=== PATIENT | female | born 1960 | race Hispanic/Latino ===

== ENCOUNTER → 2024-01-23 07:51 | Outpatient (REF) | payer BC, SELFPAY ==
[2024-01-23 08:42] LABS: % Eosinophils 2.6 % (0-6); % Immature Granulocytes 0.3 % (0-0.5); % Lymphocytes 49.4 % (20.5-51.1); % Monocytes 10.5 % (1.7-9.3); % Neutrophils 36.2 % (42.2-75.2); Absolute Basophils 0.1 10^3/uL (0-0.2); Absolute Eosinophils 0.2 10^3/uL (0-0.7); Absolute Lymphocytes 3.1 10^3/uL (1.2-3.4); Absolute Monocytes 0.7 10^3/uL (0.1-0.6); Absolute Neutrophils 2.3 10^3/uL (1.4-6.5); Hematocrit 35.6 % (37.0-47.0); Hemoglobin 11.5 g/dL (12.0-16.0); Mean Corp Hgb Conc. 32.3 g/dL (33.0-37.0); Mean Corpuscular Hgb 27.4 pg (27.0-31.0); Mean Corpuscular Volume 84.8 fL (81.0-99.0); Mean Platelet Volume 9.1 fL (7.4-10.4); Nucleated Red Blood Cells % 0 %; Platelet Count 271 10^3/uL (130-400); White Blood Cell Count 6.2 10^3/uL (4.8-10.8)
[2024-01-23 09:12] LABS: ALT (SGPT) 19 U/L (0-35); AST (SGOT) 22 U/L (14-36); Albumin 3.6 g/dl (3.5-5.0); Alkaline Phosphatase 80 U/L (38-126); Blood Urea Nitrogen 10 mg/dl (7-17); Calcium 9.9 mg/dl (8.4-10.2); Carbon Dioxide 28 mmol/L (22-30); Chloride 106 mmol/L (98-107); Glucose 94 mg/dl (70-99); HDL Cholesterol 64 mg/dl; LDL Cholesterol, Calculated 26 mg/dl; Potassium 4.5 mmol/L (3.5-5.1); Sodium 139 mmol/L (135-145); Total Bilirubin 0.7 mg/dl (0.2-1.3); Total Cholesterol 125 mg/dl (50-199); Total Protein 6.6 g/dl (6.3-8.2); Triglyceride 177 mg/dl (10-149); Very Low Density Lipoprotein 35 mg/dl (0-30); eGFR > 60.00
== END ==
LOC: REG 07:51
PROVIDERS: ATTENDING PHYSICIAN Student in an Organized Health Care Education/Training Program
DX: E78.00 Pure hypercholesterolemia, unspecified (principal); Z86.2 Personal history of diseases of the blood and blood-forming organs and certain disorders involving the immune mechanism; I10 Essential (primary) hypertension
CPT/HCPCS: 36415; 80053; 80061; 85025

== ENCOUNTER 2024-02-10 08:17 | Outpatient (RCR) | payer BC, SELFPAY | END 2024-02-10 23:59 | disposition home or self-care (01) | LOC: ROT 08:17 | PROVIDERS: ATTENDING PHYSICIAN Orthopaedic Surgery Hand Surgery; FAMILY PHYSICIAN Student in an Organized Health Care Education/Training Program | DX: M79.645 Pain in left finger(s) (principal); Z47.89 Encounter for other orthopedic aftercare; Z73.6 Limitation of activities due to disability | CPT/HCPCS: 97166; 97535 ==

== ENCOUNTER 2024-02-25 09:08 | Outpatient (RCR) | payer BC, SELFPAY | END 2024-02-25 23:59 | disposition home or self-care (01) | LOC: ROT 09:08 | PROVIDERS: ATTENDING PHYSICIAN Orthopaedic Surgery Hand Surgery; FAMILY PHYSICIAN Student in an Organized Health Care Education/Training Program | DX: M79.645 Pain in left finger(s) (principal); Z47.89 Encounter for other orthopedic aftercare; Z73.6 Limitation of activities due to disability | CPT/HCPCS: 97018; 97110; 97140 ==

== ENCOUNTER 2024-04-09 14:30 | Emergency (ER) | payer BC, SELFPAY ==
[2024-04-09] VITALS (11 sets, daily range): BP systolic 105–136; BP diastolic 66–90; BMI 27.5
[2024-04-09] MEDS: OFIRMEV 100 IV (16:44)
[2024-04-09] MEDS: ZOFRAN 4 MG IV (16:44)
[2024-04-09] MEDS: NSS 1000 IV (16:44)
[2024-04-09 16:57] LABS: % Basophils 0.4 % (0-2); % Eosinophils 0.1 % (0-6); % Immature Granulocytes 0.5 % (0-0.5); % Lymphocytes 25.2 % (20.5-51.1); % Neutrophils 65.8 % (42.2-75.2); Absolute Immature Granulocytes 0.1 10^3/uL (0-0.05); Absolute Lymphocytes 2.6 10^3/uL (1.2-3.4); Absolute Monocytes 0.8 10^3/uL (0.1-0.6); Absolute Neutrophils 6.9 10^3/uL (1.4-6.5); Hematocrit 32.4 % (37.0-47.0); Hemoglobin 10.7 g/dL (12.0-16.0); Mean Corpuscular Hgb 27.4 pg (27.0-31.0); Mean Corpuscular Volume 83.1 fL (81.0-99.0); Mean Platelet Volume 9.4 fL (7.4-10.4); Nucleated Red Blood Cells % 0 %; Platelet Count 305 10^3/uL (130-400); Red Cell Dist. Width 15.9 % (11.5-14.5); White Blood Cell Count 10.4 10^3/uL (4.8-10.8)
[2024-04-09 17:06] LABS: ALT (SGPT) 20 U/L (0-35); AST (SGOT) 19 U/L (14-36); Albumin 3.9 g/dl (3.5-5.0); Alkaline Phosphatase 75 U/L (38-126); Blood Urea Nitrogen 17 mg/dl (7-17); Calcium 9.7 mg/dl (8.4-10.2); Carbon Dioxide 27 mmol/L (22-30); Chloride 103 mmol/L (98-107); Estimated Creatinine Clearance 101 ml/min; Glucose 100 mg/dl (70-99); Lipase 119 U/L (23-300); Potassium 4.4 mmol/L (3.5-5.1); Sodium 135 mmol/L (135-145); Total Bilirubin 0.6 mg/dl (0.2-1.3); Total Protein 6.6 g/dl (6.3-8.2); eGFR > 60.00
[2024-04-09] MEDS: COMPAZINE 10 MG IV (18:33)
[2024-04-09 19:13] LABS: Urine Albumin Negative (Neg - Trace); Urine Bilirubin Negative (Negative); Urine Character Clear (Clear); Urine Color Straw; Urine Glucose Negative (Negative); Urine Ketone Negative (Negative); Urine Leukocyte Negative (Negative); Urine Nitrite Negative (Negative); Urine Occult Blood Negative (Negative); Urine Urobilinogen Negative (Neg - 1+); Urine pH 6.5 (5.0-9.0)
[2024-04-09 20:53] LABS: COVID-19 Antigen Negative (Negative)
--- NOTE | 2024-04-09 23:10 | ED.GENMED ---
History of Present Illness
General
Chief Complaint: Abdominal Symptoms
Source: patient
Exam Limitations: none
Time Seen by Provider: 04/09/24 16:23
Nursing documentation reviewed up to this point in time: agreed with
Travel History
Have you had any contact with someone who has COVID-19?: No
Do you have any symptoms of coronavirus? Fever > 100 degrees, chills, cough, shortness of breath, sore throat, loss of taste or smell, muscle aches, or headache?: No
History of Present Illness
History of Present Illness:
Patient to ED with complaint of n/v/headache x 2 days. Denies fever/chills. Unable to keep anything down. Brought to ED by spouse for eval.
Past History
Past History
ED Past Medical History: CAD, GERD, HTN (Hypertension) and Psychiatric (Anxiety)
ED Past Surgical History: Cardiac (Cardiac stent 04/2021 Dr. Mosley. Last visit 3 weeks ago for check up.)
Social History
Tobacco: Non-smoker
Alcohol: None
Personal:
Living: with family
Employment: Retired
Family History
Family History: Diabetes
Review of Systems
Review of Systems
Allergies reviewed?: Yes
All Other Systems: ROS reviewed and negative except as documented in HPI and ROS
Constitutional: Reports no symptoms
EENT: Reports no symptoms
Respiratory: Reports no symptoms
Cardiac: Reports no symptoms
ABD/GI: Reports nausea and vomiting
: Reports no symptoms
Musculoskeletal: Reports no symptoms
Skin: Reports no symptoms
Neurological: Reports headache
Psychiatric: Reports no symptoms
Phy Exam
General Physical Exam
General Presentation: well appearing and moderate distress
General Skin: warm and dry
General Habitus: normal
General Mental: alert
Cardiovascular Exam
Cardiovascular Exam: regular rate/rhythm and no edema
Pulmonary Exam
Pulmonary Exam: lungs clear and no respiratory distress
Gastrointestinal Exam
Gastrointestinal Exam: normal bowel sounds, non tender, soft, no organomegaly, no pulsatile mass, non distended and no cva tenderness
Neurological Exam
Neurological Exam: alert, oriented x3, CN II-XII intact, no motor deficits, no sensory deficits and speech normal
Musculoskeletal Exam
Musculoskeletal Exam: full ROM and neuro vasc intact
Skin Exam
Skin Exam: normal color, warm/dry and no rash
Psychiatric Exam
Psychiatric Exam: normal mood/affect
Course
Orders/Labs/Results
Orders:
Orders
04/09/24 16:32
CT Head W/o Iv Contrast Urgent
Comment:
Reason For Exam: severe headache, vomiting
0.9% Sodium Chloride 1000 ml [Nss] 1,000 ml IV BOLUS
Acetaminophen 1000MG/100Ml [Ofirmev] 1,000 mg in 100 ml IV ONCE
Acetaminophen IV Indication:: No OR & No Enteral Access
Ondansetron Injectable [Zofran] 4 mg IV NOW STA
04/09/24 16:40
Complete Blood Count/With Diff Urgent
Comprehensive Metabolic Panel Urgent
Lipase Urgent
Urinalysis Reflex To Culture Urgent
Date Specimen was Collected: 04/09/24
Time Specimen was Collected: 16:34
04/09/24 18:10
Prochlorperazine [Compazine] 10 mg IV NOW STA
04/09/24 20:19
COVID-19 Antigen Urgent
Source: Nasal Swab
Abnormal Lab Results
04/09/24
16:40
RBC 3.90 L 10^6/uL
(4.20-5.40)
Hgb 10.7 L g/dL
(12.0-16.0)
Hct 32.4 L %
(37.0-47.0)
RDW 15.9 H %
(11.5-14.5)
Abs Immat Gran (auto) 0.1 H 10^3/uL
(0-0.05)
Absolute Neuts (auto) 6.9 H 10^3/uL
(1.4-6.5)
Absolute Monos (auto) 0.8 H 10^3/uL
(0.1-0.6)
Glucose 100 H mg/dl
(70-99)
04/09/24 16:40
04/09/24 16:40
Vital Signs
Initial and Last Documented VS:
Initial Vital Signs
Temp Pulse Resp BP Pulse Ox
97.8 F 63 16 131/90 98
04/09/24 14:32 04/09/24 14:32 04/09/24 14:32 04/09/24 14:32 04/09/24 14:32
Last Documented Vital Signs
Temp Pulse Resp BP Pulse Ox
97.9 F 65 16 109/78 90
04/09/24 17:43 04/09/24 20:44 04/09/24 20:44 04/09/24 20:44 04/09/24 20:37
*Radiology
Radiology exam reviewed: radiology read reviewed
*Pulse Oximetry
Patient hypoxic: no
*Critical Care Note
Total Time (30-74mins, 75-104mins- exclusive of procedures): Not Applicable
Update Note
Update Note:
Improved with IVF, tylenol. Will discharge home, close follow up with PCP. RX for compazine sent to pharmacy. Given instructions on s/s to return to ED and she is agreeable to plan.
ED Attending Note
-
Portions of this chart may have been created with voice recognition software.� Occasional wrong word or��sound alike� substitutions may have occurred due to the inherent limitations of voice recognition software.
Discharge Plan
Departure
Patient Disposition: Home (Routine Discharge)
Date of Disposition: 04/09/24
Time of Disposition: 20:19
Patient with high blood pressure during this ER visit?: No
Condition: Good
Covid-19: Not Applicable
Discharge Problem:
Vomiting
Instructions: Clear Liquid Diet, Nausea and Vomiting, Adult (DC)
Prescriptions:
New
prochlorperazine maleate [Compazine] 10 mg tablet
10 mg PO TID PRN (Reason: nausea and vomiting) Qty: 12 0RF
No Action
citalopram 40 MG tablet
40 mg PO DAILY
aspirin [Lo-Dose Aspirin] 81 MG tablet,delayed release (DR/EC)
81 mg PO DAILY
Propranolol Hcl [Inderal La] 60 MG Cap.Sa.24h
60 mg PO DAILY
atorvastatin 40 MG tablet
40 mg PO DAILY Qty: 90 3RF
clopidogrel 75 MG tablet
75 mg PO DAILY Qty: 90 3RF
nitroglycerin 0.4 MG tablet, sublingual
0.4 mg sublingual [id number] PRN (Reason: chest pain) Qty: 25 2RF
Referrals:
Rosaura Burgos MD [Family Provider] - Follow up in 2-3 days
Interventions
Interventions:
*Risk Screen - Suicide Last Done: 04/09/24 16:49
*General Assessment Last Done: 04/09/24 16:49
*Neglect/Abuse Screening Last Done: 04/09/24 16:49
ED- Fall Risk Assessment Last Done: 04/09/24 16:49
*ED COVID-19 Vaccine History Last Done: 04/09/24 16:49
*Nursing Disposition Last Done: 04/09/24 20:44
DP-Gxemmt-Otgezanlmx Assessment Last Done: 04/09/24 16:49
Discharge Date and Time
Discharge Date/Time: 04/09/24 20:45
Print Language: SYRI[place]
== END 2024-04-09 20:45 | disposition home or self-care (01) ==
LOC: EMR 14:30
PROVIDERS: Nurse Practitioner; EMERGENCY PHYSICIAN Emergency Medicine; FAMILY PHYSICIAN Student in an Organized Health Care Education/Training Program
DX: R11.2 Nausea with vomiting, unspecified (principal); R51.9 Headache, unspecified
CPT/HCPCS: 99283; 96374; 96375; 96361; 70450; 80053; 81003; 83690; 85025; 87811

== ENCOUNTER → 2024-04-13 14:03 | Outpatient (REF) | payer BC, SELFPAY ==
[2024-04-13 15:17] LABS: % Basophils 0.5 % (0-2); % Eosinophils 1.8 % (0-6); % Immature Granulocytes 0.4 % (0-0.5); % Lymphocytes 40.8 % (20.5-51.1); % Monocytes 10.1 % (1.7-9.3); % Neutrophils 46.4 % (42.2-75.2); Absolute Eosinophils 0.2 10^3/uL (0-0.7); Absolute Lymphocytes 3.4 10^3/uL (1.2-3.4); Absolute Monocytes 0.8 10^3/uL (0.1-0.6); Absolute Neutrophils 3.8 10^3/uL (1.4-6.5); Hematocrit 36.2 % (37.0-47.0); Hemoglobin 11.4 g/dL (12.0-16.0); Mean Corp Hgb Conc. 31.5 g/dL (33.0-37.0); Mean Corpuscular Hgb 27.3 pg (27.0-31.0); Mean Corpuscular Volume 86.8 fL (81.0-99.0); Mean Platelet Volume 9.4 fL (7.4-10.4); Nucleated Red Blood Cells % 0 %; Platelet Count 316 10^3/uL (130-400); Red Blood Cell Count 4.17 10^6/uL (4.20-5.40); Red Cell Dist. Width 15.9 % (11.5-14.5); White Blood Cell Count 8.2 10^3/uL (4.8-10.8)
[2024-04-13 15:38] LABS: Iron 71 ug/dl (37-170)
[2024-04-13 15:49] LABS: Percent Saturation 15 % (20-50); Total Iron Binding Capacity 450 ug/dl (265-497)
[2024-04-13 16:13] LABS: Ferritin 5.2 ng/ml (11.1-264.0)
[2024-04-13 16:27] LABS: Vitamin B12 253 pg/ml (239-931)
== END ==
LOC: REG 14:03
PROVIDERS: ATTENDING PHYSICIAN Student in an Organized Health Care Education/Training Program
DX: D64.9 Anemia, unspecified (principal); Z00.00 Encounter for general adult medical examination without abnormal findings
CPT/HCPCS: 36415; 82607; 82728; 83540; 83550; 85025; 86787

== ENCOUNTER → 2024-07-22 07:57 | Outpatient (REF) | payer BC, SELFPAY ==
[2024-07-22 08:42] LABS: % Basophils 0.7 % (0-2); % Eosinophils 1.7 % (0-6); % Immature Granulocytes 0.4 % (0-0.5); % Lymphocytes 40.9 % (20.5-51.1); % Monocytes 10.9 % (1.7-9.3); % Neutrophils 45.4 % (42.2-75.2); Absolute Eosinophils 0.1 10^3/uL (0-0.7); Absolute Lymphocytes 2.2 10^3/uL (1.2-3.4); Absolute Monocytes 0.6 10^3/uL (0.1-0.6); Absolute Neutrophils 2.5 10^3/uL (1.4-6.5); Hematocrit 39.1 % (37.0-47.0); Hemoglobin 13.3 g/dL (12.0-16.0); Mean Corpuscular Hgb 29.6 pg (27.0-31.0); Mean Corpuscular Volume 87.1 fL (81.0-99.0); Mean Platelet Volume 9.8 fL (7.4-10.4); Nucleated Red Blood Cells % 0 %; Platelet Count 237 10^3/uL (130-400); Red Blood Cell Count 4.49 10^6/uL (4.20-5.40); Red Cell Dist. Width 16.3 % (11.5-14.5); White Blood Cell Count 5.4 10^3/uL (4.8-10.8)
[2024-07-22 10:18] LABS: IgA 141 mg/dl (70-400)
[2024-07-23 23:17] LABS: H. pylori Breath Test Negative (Negative)
[2024-07-24 01:14] LABS: Endomysial IgA Antibody Titer <1:10 (<1:10)
== END ==
LOC: REG 07:57
PROVIDERS: ATTENDING PHYSICIAN Internal Medicine Gastroenterology; FAMILY PHYSICIAN Student in an Organized Health Care Education/Training Program
DX: D50.8 Other iron deficiency anemias (principal)
CPT/HCPCS: 36415; 82784; 83013; 83516; 85025; 86231

== ENCOUNTER → 2024-07-27 09:30 | Outpatient (REF) | payer BC, SELFPAY ==
[2024-07-28 14:23] LABS: H. pylori Antigen, Fecal Negative (Negative)
== END ==
LOC: REG 09:30
PROVIDERS: ATTENDING PHYSICIAN Internal Medicine Gastroenterology; FAMILY PHYSICIAN Student in an Organized Health Care Education/Training Program
DX: D50.8 Other iron deficiency anemias (principal)
CPT/HCPCS: 82270; 87338

== ENCOUNTER → 2024-08-17 13:09 | Outpatient (REF) | payer BC, SELFPAY | LOC: WDC 13:09 | PROVIDERS: ATTENDING PHYSICIAN Student in an Organized Health Care Education/Training Program | DX: Z12.31 Encounter for screening mammogram for malignant neoplasm of breast (principal) | CPT/HCPCS: 77063; 77067 ==

== ENCOUNTER → 2024-08-23 06:29 | Day surgery (SDC) | payer BC, SELFPAY | LOC: GI 06:29 | PROVIDERS: ATTENDING PHYSICIAN Internal Medicine Gastroenterology | DX: D50.9 Iron deficiency anemia, unspecified (principal); D12.3 Benign neoplasm of transverse colon; K22.89 Other specified disease of esophagus; K44.9 Diaphragmatic hernia without obstruction or gangrene; K31.89 Other diseases of stomach and duodenum; K20.90 Esophagitis, unspecified without bleeding | CPT/HCPCS: 45385; 45381; 43239; 88305; 88342 ==

== ENCOUNTER 2024-10-27 10:45 | Emergency (ER) | payer BC, SELFPAY ==
[2024-10-27 11:05] VITALS: BP 141/108
--- NOTE | 2024-10-27 11:07 | ED.GENMED ---
ED Provider Triage
<Chi Nazario PA-C - Last Filed: 10/27/24 11:07>
-
Patient seen by provider in Triage?: Seen in Triage
64-year-old female not anticoagulated tripped over uneven sidewalk and fell forward hitting her forehead on a dumpster. She notes headache and slight neck discomfort. She does not think she lost consciousness. No vision disturbance. No other
complaints
Vital signs stable through triage. CT head and cervical spine ordered
Medical screening examination was provided at triage by healthcare provider. She warrants further evaluation
History of Present Illness
<Chi Nazario PA-C - Last Filed: 10/27/24 11:07>
General
Chief Complaint: Head Injury
Time Seen by Provider: 10/27/24 12:18
<Aquilino Reyna PA-C - Last Filed: 10/27/24 14:38>
General
Source: patient
History of Present Illness
History of Present Illness:
64-year-old female with past medical history of hypertension and coronary artery disease presenting to the emergency department for evaluation after she accidentally stumbled and fell face first into the side of a dumpster injuring the right side of
her head. Patient noticed immediate contusion to the right frontal scalp and is endorsing headache and mild nausea. No reported loss consciousness, vomiting, vision changes or any other extremity related injuries.
Past History
<Chi Nazario PA-C - Last Filed: 10/27/24 11:07>
Past History
ED Past Medical History: CAD, GERD, HTN (Hypertension) and Psychiatric (Anxiety)
ED Past Surgical History: Cardiac (Cardiac stent 04/2021 Dr. Mosley. Last visit 3 weeks ago for check up.)
Social History
Tobacco: Non-smoker
Alcohol: None
Personal:
Living: with family
Employment: Retired
Family History
Family History: Diabetes
<Aquilino Reyna PA-C - Last Filed: 10/27/24 14:38>
Social History
Drug: None
Review of Systems
<Aquilino Reyna PA-C - Last Filed: 10/27/24 14:38>
Review of Systems
All Other Systems: ROS reviewed and negative except as documented in HPI and ROS
Phy Exam
<Aquilino Reyna PA-C - Last Filed: 10/27/24 14:38>
Physical Exam
Physical Exam:
GENERAL: Alert , in no apparent distress
EYE: conjunctiva clear
Head: Moderate-sized contusion over the right frontal scalp. There is also superficial abrasions surrounding this and ecchymosis to the right upper eyelid.
NECK: Supple,
ENT: mmm. Small abrasion right lateral lower lip
LUNGS: no acute respiratory distress
NEUROLOGICAL: Alert and oriented
SKIN: Warm and dry, skin intact.
MUSCULOSKELETAL: well perfused.
PSYCH: Normal and appropriate interaction.
Scores
<Aquilino Reyna PA-C - Last Filed: 10/27/24 14:38>
Heart Failure Risk
Heart Failure Risk Score: Not Applicable
Heart Score for Chest Pain Patients
STEMI patient?: Not applicable
Withdrawal Assessment of Alcohol
Withdrawal Assessment Completed?: Not applicable
Course
<Chi Nazario PA-C - Last Filed: 10/27/24 11:07>
Orders/Labs/Results
Orders:
Orders
10/27/24 11:04
CT Cervical Spine W/o Iv Contr Urgent
Comment:
Reason For Exam: fall, head strike
10/27/24 11:05
CT Head W/o Iv Contrast Urgent
Comment:
Reason For Exam: fall
10/27/24 12:26
Acetaminophen [Tylenol] 1,000 mg PO NOW STA
Tetanus/Diphth/Acelpertussis [Adacel] 0.5 ml IM .ONCE ONE
Vital Signs
Initial and Last Documented VS:
Initial Vital Signs
Temp Pulse Resp BP Pulse Ox
98.1 F 65 18 141/108 94
10/27/24 11:05 10/27/24 11:05 10/27/24 11:05 10/27/24 11:05 10/27/24 11:05
Last Documented Vital Signs
Temp Pulse Resp BP Pulse Ox
98.1 F 67 18 141/108 97
10/27/24 11:05 10/27/24 13:07 10/27/24 11:05 10/27/24 11:05 10/27/24 13:07
<Aquilino Reyna PA-C - Last Filed: 10/27/24 14:38>
Orders/Labs/Results
Orders:
Orders
10/27/24 11:04
CT Cervical Spine W/o Iv Contr Urgent
Comment:
Reason For Exam: fall, head strike
10/27/24 11:05
CT Head W/o Iv Contrast Urgent
Comment:
Reason For Exam: fall
10/27/24 12:26
Acetaminophen [Tylenol] 1,000 mg PO NOW STA
Tetanus/Diphth/Acelpertussis [Adacel] 0.5 ml IM .ONCE ONE
Vital Signs
Initial and Last Documented VS:
Initial Vital Signs
Temp Pulse Resp BP Pulse Ox
98.1 F 65 18 141/108 94
10/27/24 11:05 10/27/24 11:05 10/27/24 11:05 10/27/24 11:05 10/27/24 11:05
Last Documented Vital Signs
Temp Pulse Resp BP Pulse Ox
98.1 F 67 18 141/108 97
10/27/24 11:05 10/27/24 13:07 10/27/24 11:05 10/27/24 11:05 10/27/24 13:07
<Aquilino Reyna PA-C - Last Filed: 10/27/24 14:38>
MDM/Problems Addressed
Differential Diagnosis Includes:
Contusion, concussion, intracranial bleeding
MDM/Problems Addressed:
64-year-old female presenting the ER following accidental fall resulting in head injury/contusion. No loss consciousness. Exam did reveal a moderate-sized contusion to the right frontal scalp. Head CT and cervical spine CT unremarkable any
emergent pathologies. Will update patient's tetanus. Tylenol ordered for pain control. Provided with ice pack and advised to keep head elevated to help with swelling. Otherwise stable for discharge home.
<Aquilino Reyna PA-C - Last Filed: 10/27/24 14:38>
*Radiology
Radiology exam reviewed: radiology read reviewed
*Pulse Oximetry
Patient hypoxic: no
*Critical Care Note
Total Time (30-74mins, 75-104mins- exclusive of procedures): Not Applicable
ED Attending Note
<Chi Nazario PA-C - Last Filed: 10/27/24 11:07>
-
Portions of this chart may have been created with voice recognition software.� Occasional wrong word or��sound alike� substitutions may have occurred due to the inherent limitations of voice recognition software.
Discharge Plan
Departure
Patient Disposition: Home (Routine Discharge)
Date of Disposition: 10/27/24
Time of Disposition: 12:25
Patient with high blood pressure during this ER visit?: Yes
Discharge Problem:
Contusion of forehead
Instructions: Concussion, Adult (DC)
Prescriptions:
No Action
citalopram 40 MG tablet
40 mg PO DAILY
aspirin [Lo-Dose Aspirin] 81 MG tablet,delayed release (DR/EC)
81 mg PO DAILY
Propranolol Hcl [Inderal La] 60 MG Cap.Sa.24h
60 mg PO DAILY
atorvastatin 40 MG tablet
40 mg PO DAILY Qty: 90 3RF
clopidogrel 75 MG tablet
75 mg PO DAILY Qty: 90 3RF
nitroglycerin 0.4 MG tablet, sublingual
0.4 mg sublingual [id number] PRN (Reason: chest pain) Qty: 25 2RF
prochlorperazine maleate [Compazine] 10 mg tablet
10 mg PO TID PRN (Reason: nausea and vomiting) Qty: 12 0RF
Referrals:
Rosaura Burgos MD [Family Provider] -
Interventions
Interventions:
*Risk Screen - Suicide Last Done: 10/27/24 11:05
*General Assessment Last Done: 10/27/24 11:05
*Neglect/Abuse Screening Last Done: 10/27/24 11:05
*ED COVID-19 Vaccine History Last Done: 10/27/24 13:06
*Nursing Disposition Last Done: 10/27/24 13:07
ED-Musculoskeletal Assessment Last Done: 10/27/24 13:07
ED- Neurological Assessment Last Done: 10/27/24 12:21
ED-Skin Assessment Last Done: 10/27/24 12:22
Discharge Date and Time
Discharge Date/Time: 10/27/24 13:08
Print Language: GRENADIAN
[2024-10-27 12:20] VITALS: BMI 29.5
[2024-10-27] MEDS: TYLENOL 1000 MG PO (12:36)
[2024-10-27] MEDS: ADACEL 0.5 ML IM (12:37)
== END 2024-10-27 13:08 | disposition home or self-care (01) ==
LOC: EMR 10:45
PROVIDERS: EMERGENCY PHYSICIAN Student in an Organized Health Care Education/Training Program; FAMILY PHYSICIAN Student in an Organized Health Care Education/Training Program
DX: S00.03XA Contusion of scalp, initial encounter (principal); S00.211A Abrasion of right eyelid and periocular area, initial encounter; S00.511A Abrasion of lip, initial encounter; W01.198A Fall on same level from slipping, tripping and stumbling with subsequent striking against other object, initial encounter; Z23 Encounter for immunization
CPT/HCPCS: 99284; 90471; 70450; 72125; 90715

== ENCOUNTER → 2024-12-30 10:34 | Outpatient (REF) | payer BC, SELFPAY ==
[2024-12-30 10:59] LABS: % Basophils 0.8 % (0-2); % Eosinophils 1.4 % (0-6); % Immature Granulocytes 0.3 % (0-0.5); % Lymphocytes 43.4 % (20.5-51.1); % Monocytes 11.6 % (1.7-9.3); % Neutrophils 42.5 % (42.2-75.2); Absolute Basophils 0.1 10^3/uL (0-0.2); Absolute Eosinophils 0.1 10^3/uL (0-0.7); Absolute Lymphocytes 2.9 10^3/uL (1.2-3.4); Absolute Monocytes 0.8 10^3/uL (0.1-0.6); Absolute Neutrophils 2.8 10^3/uL (1.4-6.5); Hematocrit 40.1 % (37.0-47.0); Hemoglobin 13.4 g/dL (12.0-16.0); Mean Corp Hgb Conc. 33.4 g/dL (33.0-37.0); Mean Corpuscular Hgb 30.7 pg (27.0-31.0); Mean Platelet Volume 9.2 fL (7.4-10.4); Nucleated Red Blood Cells % 0 %; Platelet Count 242 10^3/uL (130-400); Red Blood Cell Count 4.36 10^6/uL (4.20-5.40); Red Cell Dist. Width 13.5 % (11.5-14.5); White Blood Cell Count 6.6 10^3/uL (4.8-10.8)
[2024-12-30 11:13] LABS: Iron 85 ug/dl (37-170)
[2024-12-30 11:23] LABS: Percent Saturation 23 % (20-50); Total Iron Binding Capacity 366 ug/dl (265-497)
[2024-12-30 11:49] LABS: Ferritin 28.1 ng/ml (11.1-264.0)
== END ==
LOC: REG 10:34
PROVIDERS: ATTENDING PHYSICIAN Physician Assistant; FAMILY PHYSICIAN Student in an Organized Health Care Education/Training Program
DX: D50.8 Other iron deficiency anemias (principal)
CPT/HCPCS: 36415; 82728; 83540; 83550; 85025

== ENCOUNTER → 2025-02-17 10:30 | Outpatient (REF) | payer BC, SELFPAY ==
[2025-02-17 11:15] LABS: % Basophils 0.7 % (0-2); % Eosinophils 1.4 % (0-6); % Immature Granulocytes 0.3 % (0-0.5); % Lymphocytes 32.5 % (20.5-51.1); % Monocytes 9.3 % (1.7-9.3); % Neutrophils 55.8 % (42.2-75.2); Absolute Basophils 0.1 10^3/uL (0-0.2); Absolute Eosinophils 0.1 10^3/uL (0-0.7); Absolute Lymphocytes 2.4 10^3/uL (1.2-3.4); Absolute Monocytes 0.7 10^3/uL (0.1-0.6); Absolute Neutrophils 4.1 10^3/uL (1.4-6.5); Hematocrit 40.2 % (37.0-47.0); Hemoglobin 13.5 g/dL (12.0-16.0); Mean Corp Hgb Conc. 33.6 g/dL (33.0-37.0); Mean Corpuscular Volume 92.2 fL (81.0-99.0); Mean Platelet Volume 9.3 fL (7.4-10.4); Nucleated Red Blood Cells % 0 %; Platelet Count 246 10^3/uL (130-400); Red Blood Cell Count 4.36 10^6/uL (4.20-5.40); Red Cell Dist. Width 13.4 % (11.5-14.5); White Blood Cell Count 7.4 10^3/uL (4.8-10.8)
[2025-02-17 11:37] LABS: ALT (SGPT) 24 U/L (0-35); AST (SGOT) 22 U/L (14-36); Albumin 4.6 g/dl (3.5-5.0); Alkaline Phosphatase 94 U/L (38-126); Blood Urea Nitrogen 16 mg/dl (7-17); Calcium 10.1 mg/dl (8.4-10.2); Carbon Dioxide 27 mmol/L (22-30); Chloride 107 mmol/L (98-107); Glucose 89 mg/dl (70-99); Potassium 4.3 mmol/L (3.5-5.1); Sodium 141 mmol/L (135-145); Total Bilirubin 0.8 mg/dl (0.2-1.3); Total Protein 7.2 g/dl (6.3-8.2); eGFR > 60.00
[2025-02-17 12:51] LABS: Glycohemoglobin (HgbA1c) 5.9 % (4.0-5.6)
== END ==
LOC: REG 10:30
PROVIDERS: ATTENDING PHYSICIAN Student in an Organized Health Care Education/Training Program; FAMILY PHYSICIAN Student in an Organized Health Care Education/Training Program; REFERRING PHYSICIAN Orthopaedic Surgery
DX: Z01.818 Encounter for other preprocedural examination (principal); I10 Essential (primary) hypertension; I25.10 Atherosclerotic heart disease of native coronary artery without angina pectoris; E78.5 Hyperlipidemia, unspecified
CPT/HCPCS: 36415; 80053; 83036; 85025

== ENCOUNTER → 2025-04-08 07:22 | Outpatient (REF) | payer BC, SELFPAY ==
[2025-04-08 07:56] LABS: % Basophils 0.7 % (0-2); % Eosinophils 1.8 % (0-6); % Immature Granulocytes 0.2 % (0-0.5); % Monocytes 9.6 % (1.7-9.3); % Neutrophils 46.7 % (42.2-75.2); Absolute Eosinophils 0.1 10^3/uL (0-0.7); Absolute Lymphocytes 2.4 10^3/uL (1.2-3.4); Absolute Monocytes 0.6 10^3/uL (0.1-0.6); Absolute Neutrophils 2.8 10^3/uL (1.4-6.5); Hematocrit 40.7 % (37.0-47.0); Hemoglobin 13.4 g/dL (12.0-16.0); Mean Corp Hgb Conc. 32.9 g/dL (33.0-37.0); Mean Corpuscular Hgb 30.9 pg (27.0-31.0); Mean Platelet Volume 9.1 fL (7.4-10.4); Nucleated Red Blood Cells % 0 %; Platelet Count 230 10^3/uL (130-400); Red Blood Cell Count 4.33 10^6/uL (4.20-5.40); Red Cell Dist. Width 13.4 % (11.5-14.5)
[2025-04-08 08:43] LABS: ALT (SGPT) 23 U/L (0-35); AST (SGOT) 21 U/L (14-36); Albumin 4.4 g/dl (3.5-5.0); Alkaline Phosphatase 69 U/L (38-126); Calcium 10.3 mg/dl (8.4-10.2); Carbon Dioxide 31 mmol/L (22-30); Chloride 109 mmol/L (98-107); Glucose 90 mg/dl (70-99); HDL Cholesterol 68 mg/dl; Potassium 5.1 mmol/L (3.5-5.1); Sodium 143 mmol/L (135-145); Total Bilirubin 0.8 mg/dl (0.2-1.3); Total Protein 7.1 g/dl (6.3-8.2); Triglyceride 138 mg/dl (10-149); Very Low Density Lipoprotein 27 mg/dl (0-30); eGFR > 60.00
[2025-04-08 08:47] LABS: Glycohemoglobin (HgbA1c) 5.8 % (4.0-5.6)
[2025-04-08 08:50] LABS: Blood Urea Nitrogen 13 mg/dl (7-17); LDL Cholesterol, Calculated 44 mg/dl; Total Cholesterol 139 mg/dl (50-199)
== END ==
LOC: REG 07:22
PROVIDERS: ATTENDING PHYSICIAN Student in an Organized Health Care Education/Training Program
DX: I10 Essential (primary) hypertension (principal); I25.10 Atherosclerotic heart disease of native coronary artery without angina pectoris; E78.5 Hyperlipidemia, unspecified
CPT/HCPCS: 36415; 80053; 80061; 83036; 85025

== ENCOUNTER → 2025-09-01 12:44 | Outpatient (REF) | payer MEDICARE, OTHER, SELFPAY | LOC: WDC 12:44 | PROVIDERS: ATTENDING PHYSICIAN Obstetrics & Gynecology Gynecology; FAMILY PHYSICIAN Student in an Organized Health Care Education/Training Program | DX: Z12.31 Encounter for screening mammogram for malignant neoplasm of breast (principal) | CPT/HCPCS: 77063; 77067 ==

== ENCOUNTER → 2025-11-09 08:48 | Outpatient (REF) | payer MEDICARE, OTHER, SELFPAY | LOC: RAD 08:48 | PROVIDERS: ATTENDING PHYSICIAN Student in an Organized Health Care Education/Training Program | DX: M54.2 Cervicalgia (principal) | CPT/HCPCS: 72050 ==